=== PATIENT | female | born 1960 | race African-American/Black ===

== ENCOUNTER → 2016-09-07 | Outpatient (CLI) | payer OTHER ==
--- NOTE | 2016-09-07 13:39 | RAD ---
Exam: PA and lateral chest radiograph History: Chest pain. Comparison: 12/31/2013. Findings: Cardiomediastinal silhouette is within normal limits for size. Bilateral lung tello are free of focal infiltrate. No pleural effusion is seen. Impression: No acute cardiopulmonary process.
== END | disposition home or self-care (01) ==
LOC: RAD 11:08
PROVIDERS: ATTEND Family Medicine
DX: R07.9 Chest pain, unspecified (principal)
CPT/HCPCS: 71020

== ENCOUNTER → 2018-02-13 | Outpatient (CLI) | payer OTHER ==
--- NOTE | 2018-02-13 11:43 | RAD ---
DATE: 02/13/2018 EXAM: DIGITAL SCREEN BILAT W/CAD HISTORY: Routine screening COMPARISON: 05/07/2015 This study was interpreted with the benefit of Computerized Aided Detection (CAD). Breast Density: SCATTERED The breast parenchyma shows scattered fibroglandular densities. Breast parenchyma level B. FINDINGS: No new or enlarging breast densities are seen. No suspicious microcalcifications are evident. IMPRESSION: Stable mammograms without evidence of malignancy. BI-RADS CATEGORY: 2 BENIGN FINDING(S) RECOMMENDED FOLLOW-UP: 12M 12 MONTH FOLLOW-UP PQRS compliance statement: Patient information was entered into a reminder system with a target due date for the next mammogram. Mammography is a sensitive method for finding small breast cancers, but it does not detect them all and is not a substitute for careful clinical examination. A negative mammogram does not negate a clinically suspicious finding and should not result in delay in biopsying a clinically suspicious abnormality. "Our facility is accredited by the [employer] Mammography Program."
== END | disposition home or self-care (01) ==
LOC: MAMMO 09:06
PROVIDERS: ATTEND Obstetrics & Gynecology
DX: Z12.31 Encounter for screening mammogram for malignant neoplasm of breast (principal)
CPT/HCPCS: 77067

== ENCOUNTER → 2018-09-24 | Outpatient (CLI) | payer OTHER ==
--- NOTE | 2018-09-24 16:04 | RAD ---
CHEST PA LATERAL History: Asthma, shortness of breath Comparison: 09/07/2016 two-view chest x-ray exam. Findings: Limited pulmonary inflation is noted. The cardiomediastinal silhouette is normal. Pulmonary vasculature is borderline. tThe lungs are clear other than minimal discoid atelectasis at the lung bases. No pleural effusion or pneumothorax is seen. There is no acute bone abnormality. IMPRESSION: Borderline pulmonary vasculature. Electronically signed by: Oliver Lemos MD (09/24/2018 4:01 PM) [facility]
--- NOTE | 2018-09-24 16:36 | RAD ---
Examination: 2 views of the right tibia and fibula HISTORY: History of fracture of the shaft of the right tibia COMPARISON: None available. FINDINGS: The alignment of the tibia and fibula grossly appears unremarkable. There is no acute fracture dislocation identified. IMPRESSION: No acute osseous findings. Electronically signed by: Trevor Farias MD (09/24/2018 4:33 PM) [facility]
== END | disposition home or self-care (01) ==
LOC: RAD 09:22
PROVIDERS: ATTEND Pediatrics
DX: J98.11 Atelectasis (principal); J45.909 Unspecified asthma, uncomplicated
CPT/HCPCS: 71046; 73590